=== PATIENT | female | born 1970 | race Asian ===

== ENCOUNTER → 2017-02-05 | Outpatient (CLI) | payer MEDICAID | LOC: CIMAGING 12:12 | PROVIDERS: ATTEND Family Medicine | DX: R93.8 Abnormal findings on diagnostic imaging of other specified body structures (principal) | CPT/HCPCS: 76856-PO ==

== ENCOUNTER → 2018-04-04 | Outpatient (CLI) | payer MEDICAID | LOC: CIMAGING 12:45 | PROVIDERS: ATTEND Family Medicine | DX: N93.8 Other specified abnormal uterine and vaginal bleeding (principal); R93.89 Abnormal findings on diagnostic imaging of other specified body structures | CPT/HCPCS: 76856-PO ==

== ENCOUNTER → 2018-10-17 | Outpatient (CLI) | payer MEDICAID | LOC: CIMAGING 12:05 | PROVIDERS: ATTEND Family Medicine | DX: M25.561 Pain in right knee (principal) | CPT/HCPCS: 73562-PO ==